=== PATIENT | male | born 1980 ===

== ENCOUNTER 2022-01-29 20:12 | Emergency (ER) | payer SELFPAY ==
[2022-01-29] MEDS ORDERED: Lactated Ringers 1,000 ML IV ONE (20:23)
[2022-01-29] MEDS ORDERED: diphenhydrAMINE 50 MG/ML SDV IVPUSH ONE (20:24)
[2022-01-29] MEDS ORDERED: Ketorolac 30 MG/ML SDV IVPUSH ONE (20:24)
[2022-01-29] MEDS ORDERED: Prochlorperazine 10 MG/2 ML SDV IVPUSH ONE (20:24)
[2022-01-29 22:09] VITALS: BP 110/64; PULSE 62
== END 2022-01-29 21:45 | disposition home or self-care (01) ==
LOC: FB.ED 20:12
DX: T67.9XXA Effect of heat and light, unspecified, initial encounter (principal); E86.0 Dehydration
CPT/HCPCS: 96361; 96374; 96375; 99284; J0780; J1200; J1885; J7120